=== PATIENT | female | born 1945 | race Caucasian/White ===

== ENCOUNTER 2022-07-01 15:54 | Inpatient (IN) | payer MEDICARE ==
[2022-07-01] VITALS (8 sets, daily range): BP systolic 76–116; BP diastolic 00–82
[~2022-07-01] VITALS: Ht 152.4 cm; Wt 88.1 kg
[2022-07-01 16:35] LABS: BASO # 0.1 10*3/uL (0.0-0.1); BASO % 0.6 % (0.0-1.0); EOS # 0.1 10*3/uL (0.0-0.4); EOS % 0.6 % (1.0-4.0); HEMATOCRIT 45.9 % (37.0-47.0); LYMPH # 1.6 10*3/uL (1.3-4.4); LYMPH % 18.7 % (27.0-41.0); MEAN CELL VOLUME 89.1 fl (81.0-99.0); MEAN CORPUSCULAR HGB 28.7 pg (27.0-31.0); MEAN CORPUSCULAR HGB CONC 32.2 g/dl (33.0-37.0); MEAN PLATELET VOLUME 10.4 fl (9.6-12.3); MONO # 0.9 10*3/uL (0.1-1.0); MONO % 10.4 % (3.0-9.0); NEUT # 5.8 10*3/uL (2.3-7.9); NEUT % 69.2 % (47.0-73.0); PLATELET COUNT AUTOMATED 247 10*3/uL (130-400); RED BLOOD COUNT 5.15 10*6/uL (4.10-5.10); RED CELL DISTRI WIDTH 15.7 % (0-14.5); WHITE BLOOD COUNT 8.4 10*3/uL (4.8-10.8)
[2022-07-01 16:45] LABS: ACT PARTIAL THROMBO TIME 35.8 SECONDS (20.0-32.1); INTERNATIONAL NORM RATIO 1.5 (2.0-3.5)
[2022-07-01 16:55] LABS: CREATININE 3.78 mg/dL (0.55-1.02); POTASSIUM 4.2 mmol/L (3.5-5.1); TOTAL PROTEIN 7.5 gm/dL (6.4-8.2)
[2022-07-01 18:11] LABS: BILIRUBIN Negative (Negative); BLOOD Trace-Intact (Negative); CLARITY Clear (Clear); COLOR Yellow (Yellow); GLUCOSE Trace (Negative); KETONE Negative (Negative); LEUKO ESTERASE Negative (Negative); NITRITE Negative (Negative); PH 5.5 (4.5-8.0); SPECIFIC GRAVITY 1.015 (1.001-1.030); UROBILINOGEN 0.2 E.U./dl (0.0-1.0)
[2022-07-01 18:22] LABS: RBC 16-20 rbc/hpf (0-2)
[2022-07-01 18:23] LABS: BACTERIA 1+; FINE GRANULAR CAST 0-2; MUCOUS 1+
[2022-07-01] MEDS ORDERED: FARXIGA5 M1 PO (20:36)
[2022-07-01] MEDS ORDERED: PROTONIX40 MG PO (20:36)
[2022-07-01] MEDS ORDERED: TRAD5TAB1 PO (20:37)
[2022-07-01] MEDS ORDERED: XARE15TA PO (20:38)
[2022-07-01] MEDS ORDERED: FOSAMAX70 M1 PO (20:38)
[2022-07-01] MEDS ORDERED: PROZAC40 M1 PO (20:39)
[2022-07-01] MEDS ORDERED: ASPIRIN CHEWABL81 MG PO (20:40)
[2022-07-01] MEDS ORDERED: MAGNESIUM500 MG PO (20:40)
[2022-07-01] MEDS ORDERED: BUMETANIDE2 MG PO (20:41)
[2022-07-01] MEDS ORDERED: ULTRAM50 MG PO (20:43)
[2022-07-01] MEDS ORDERED: POTASSIUM CHLO10 ME5 PO (23:57)
[2022-07-01] MEDS ORDERED: KLOR-CON M2020 ME1 PO (23:59)
[2022-07-02] VITALS: BP 130/60
[2022-07-02] MEDS ORDERED: VITAMIN D375 MCG PO (00:01)
[2022-07-02] MEDS ORDERED: LANTUS SOL100 UNIT/1 SQ (00:01)
[2022-07-02] MEDS ORDERED: Zaroxolyn,Diul2.5 MG PO (00:03)
[2022-07-02 04:00] VITALS: BP 112/65
[2022-07-02 05:23] LABS: CREATININE 2.78 mg/dL (0.55-1.02); TOTAL PROTEIN 6.8 gm/dL (6.4-8.2)
[2022-07-02 05:24] LABS: FREE T4 1.78 ng/dl (0.76-1.46)
[2022-07-02 05:29] LABS: THYROID STIM HORMONE (HS) 1.57 uIU/ml (0.358-4.75)
[2022-07-02 05:31] LABS: POTASSIUM 3.1 mmol/L (3.5-5.1)
[2022-07-02 06:10] LABS: BASO # 0.1 10*3/uL (0.0-0.1); BASO % 0.6 % (0.0-1.0); EOS # 0.1 10*3/uL (0.0-0.4); EOS % 1.7 % (1.0-4.0); HEMATOCRIT 43.5 % (37.0-47.0); LYMPH # 2.1 10*3/uL (1.3-4.4); LYMPH % 25.7 % (27.0-41.0); MEAN CELL VOLUME 88.8 fl (81.0-99.0); MEAN CORPUSCULAR HGB 28.2 pg (27.0-31.0); MEAN CORPUSCULAR HGB CONC 31.7 g/dl (33.0-37.0); MEAN PLATELET VOLUME 10.4 fl (9.6-12.3); MONO % 12.3 % (3.0-9.0); NEUT # 4.9 10*3/uL (2.3-7.9); NEUT % 59.3 % (47.0-73.0); PLATELET COUNT AUTOMATED 243 10*3/uL (130-400); RED CELL DISTRI WIDTH 16.1 % (0-14.5); WHITE BLOOD COUNT 8.2 10*3/uL (4.8-10.8)
[2022-07-02 06:17] LABS: ACT PARTIAL THROMBO TIME 29.8 SECONDS (20.0-32.1); INTERNATIONAL NORM RATIO 1.3 (2.0-3.5)
[2022-07-02 08:00] VITALS: BP 114/64
[2022-07-02 12:00] VITALS: BP 105/66
[2022-07-02 16:00] VITALS: BP 104/51
[2022-07-02 20:00] VITALS: BP 118/54
[2022-07-03] VITALS: BP 109/53
[2022-07-03 04:00] VITALS: BP 122/76
[2022-07-03 04:37] LABS: BASO % 0.3 % (0.0-1.0); EOS # 0.2 10*3/uL (0.0-0.4); EOS % 3.1 % (1.0-4.0); HEMATOCRIT 39.5 % (37.0-47.0); LYMPH # 1.5 10*3/uL (1.3-4.4); LYMPH % 24.1 % (27.0-41.0); MEAN CELL VOLUME 90.2 fl (81.0-99.0); MEAN CORPUSCULAR HGB 28.8 pg (27.0-31.0); MEAN CORPUSCULAR HGB CONC 31.9 g/dl (33.0-37.0); MEAN PLATELET VOLUME 10.3 fl (9.6-12.3); MONO # 0.8 10*3/uL (0.1-1.0); MONO % 13.3 % (3.0-9.0); NEUT # 3.6 10*3/uL (2.3-7.9); NEUT % 58.9 % (47.0-73.0); PLATELET COUNT AUTOMATED 190 10*3/uL (130-400); RED BLOOD COUNT 4.38 10*6/uL (4.10-5.10); WHITE BLOOD COUNT 6.1 10*3/uL (4.8-10.8)
[2022-07-03 04:50] LABS: ACT PARTIAL THROMBO TIME 24.1 SECONDS (20.0-32.1); INTERNATIONAL NORM RATIO 1.1 (2.0-3.5)
[2022-07-03 04:58] LABS: CREATININE 2.03 mg/dL (0.55-1.02); POTASSIUM 3.6 mmol/L (3.5-5.1); TOTAL PROTEIN 6.5 gm/dL (6.4-8.2)
[2022-07-03 08:00] VITALS: BP 148/73
[2022-07-03 12:00] VITALS: BP 110/54
[2022-07-03 16:00] VITALS: BP 136/69
[2022-07-03 20:00] VITALS: BP 123/76
[2022-07-04] VITALS: BP 136/65
[2022-07-04 06:42] LABS: BASO % 0.6 % (0.0-1.0); EOS # 0.2 10*3/uL (0.0-0.4); EOS % 3.4 % (1.0-4.0); HEMATOCRIT 41.3 % (37.0-47.0); LYMPH # 1.2 10*3/uL (1.3-4.4); LYMPH % 18.6 % (27.0-41.0); MEAN CELL VOLUME 89.6 fl (81.0-99.0); MEAN CORPUSCULAR HGB 28.6 pg (27.0-31.0); MEAN PLATELET VOLUME 10.5 fl (9.6-12.3); MONO # 0.8 10*3/uL (0.1-1.0); MONO % 11.4 % (3.0-9.0); NEUT # 4.3 10*3/uL (2.3-7.9); NEUT % 65.5 % (47.0-73.0); PLATELET COUNT AUTOMATED 186 10*3/uL (130-400); RED BLOOD COUNT 4.61 10*6/uL (4.10-5.10); RED CELL DISTRI WIDTH 15.4 % (0-14.5); WHITE BLOOD COUNT 6.6 10*3/uL (4.8-10.8)
[2022-07-04 07:01] LABS: POTASSIUM 3.2 mmol/L (3.5-5.1)
[2022-07-04 07:07] LABS: CREATININE 1.51 mg/dL (0.55-1.02); TOTAL PROTEIN 6.9 gm/dL (6.4-8.2)
[2022-07-04 08:00] VITALS: BP 136/75
[2022-07-04 12:00] VITALS: BP 117/80
[2022-07-04] MEDS ORDERED: TOPROL XL25 MG PO (12:21)
== END 2022-07-04 15:31 | disposition home health service (06) | DRG 640 ==
LOC: ED → 5E 19:03 → ICCU 19:03 → EDHOLD 19:03 → ICCU 20:32 → 5E 07-03 14:26
PROVIDERS: Emergency Medicine; Family Medicine; Student in an Organized Health Care Education/Training Program; ADMIT Emergency Medicine; ATTEND Emergency Medicine
PROC: 4B02XSZ Measurement of Cardiac Pacemaker, External Approach (ICD-10-PCS; principal; 2022-07-02)
DX: E86.0 Dehydration (principal); I50.31 Acute diastolic (congestive) heart failure; N17.0 Acute kidney failure with tubular necrosis; I13.0 Hypertensive heart and chronic kidney disease with heart failure and stage 1 through stage 4 chronic kidney disease, or unspecified chronic kidney disease; E87.0 Hyperosmolality and hypernatremia; E87.1 Hypo-osmolality and hyponatremia; E87.20 Acidosis, unspecified; E11.22 Type 2 diabetes mellitus with diabetic chronic kidney disease; N18.9 Chronic kidney disease, unspecified; I95.9 Hypotension, unspecified; M19.90 Unspecified osteoarthritis, unspecified site; E78.5 Hyperlipidemia, unspecified; E11.65 Type 2 diabetes mellitus with hyperglycemia; E83.52 Hypercalcemia; E83.41 Hypermagnesemia; E80.6 Other disorders of bilirubin metabolism; R31.9 Hematuria, unspecified; L89.892 Pressure ulcer of other site, stage 2; I25.10 Atherosclerotic heart disease of native coronary artery without angina pectoris; I48.0 Paroxysmal atrial fibrillation; Z88.0 Allergy status to penicillin; Z88.2 Allergy status to sulfonamides; Z95.0 Presence of cardiac pacemaker; Z82.49 Family history of ischemic heart disease and other diseases of the circulatory system; Z87.891 Personal history of nicotine dependence

== ENCOUNTER 2022-08-12 07:40 | Emergency (ER) | payer MEDICARE ==
[~2022-08-12 07:40] MED LIST: ASPIRIN CHEWABL81 MG PO; BUMETANIDE2 MG PO; FARXIGA5 M1 PO; FOSAMAX70 M1 PO; KLOR-CON M2020 ME1 PO; LANTUS SOL100 UNIT/1 SQ; MAGNESIUM500 MG PO; POTASSIUM CHLO10 ME5 PO; PROTONIX40 MG PO; PROZAC40 M1 PO; TOPROL XL25 MG PO; TRAD5TAB1 PO; ULTRAM50 MG PO; VITAMIN D375 MCG PO; XARE15TA PO; Zaroxolyn,Diul2.5 MG PO
[2022-08-12] MEDS ORDERED: PREDNISONE20 M1 PO (10:22)
[2022-08-12] MEDS ORDERED: NEURONTIN300 MG PO (10:22)
== END 2022-08-12 10:33 | disposition home or self-care (01) ==
LOC: ED 07:40
DX: R10.2 Pelvic and perineal pain (principal); Z88.0 Allergy status to penicillin; Z88.2 Allergy status to sulfonamides; Z79.899 Other long term (current) drug therapy; Z90.710 Acquired absence of both cervix and uterus; Z90.49 Acquired absence of other specified parts of digestive tract; Z87.891 Personal history of nicotine dependence

== ENCOUNTER 2024-02-29 11:29 | Emergency (ER) | payer OTHER ==
[~2024-02-29] VITALS: Ht 154.9 cm; Wt 78.0 kg
[~2024-02-29 11:29] MED LIST changes: +NEURONTIN300 MG PO; +PREDNISONE20 M1 PO
[2024-02-29] MEDS ORDERED: ACETAMINOPHEN 325 MG TAB PO ONE (11:50)
== END 2024-02-29 13:45 | disposition home or self-care (01) ==
LOC: ED 11:29
DX: S60.212A Contusion of left wrist, initial encounter (principal); I48.91 Unspecified atrial fibrillation; I11.0 Hypertensive heart disease with heart failure; I50.9 Heart failure, unspecified; E78.5 Hyperlipidemia, unspecified; E11.9 Type 2 diabetes mellitus without complications; Z88.0 Allergy status to penicillin; Z88.2 Allergy status to sulfonamides; Z90.49 Acquired absence of other specified parts of digestive tract; Z90.710 Acquired absence of both cervix and uterus; Z87.891 Personal history of nicotine dependence; W01.0XXA Fall on same level from slipping, tripping and stumbling without subsequent striking against object, initial encounter; Y93.89 Activity, other specified; Y92.009 Unspecified place in unspecified non-institutional (private) residence as the place of occurrence of the external cause; Y99.8 Other external cause status

== ENCOUNTER 2024-03-19 08:19 | Emergency (ER) | payer OTHER ==
[~2024-03-19] VITALS: Ht 154.9 cm; Wt 78.9 kg
[2024-03-19] MEDS ORDERED: ACETAMINOPHEN 325 MG TAB PO ONE (08:45)
[2024-03-19] MEDS ORDERED: METOPROLOL SUCC25 M2 PO (09:12)
[2024-03-19] MEDS ORDERED: FLUOXETINE HYDR20 M1 PO (09:13)
== END 2024-03-19 10:07 | disposition home or self-care (01) ==
LOC: ED 08:19
DX: S00.83XA Contusion of other part of head, initial encounter (principal); S00.81XA Abrasion of other part of head, initial encounter; M25.562 Pain in left knee; M25.552 Pain in left hip; S09.8XXA Other specified injuries of head, initial encounter; I10 Essential (primary) hypertension; E11.9 Type 2 diabetes mellitus without complications; Z88.0 Allergy status to penicillin; Z88.2 Allergy status to sulfonamides; Z90.710 Acquired absence of both cervix and uterus; Z90.49 Acquired absence of other specified parts of digestive tract; W19.XXXA Unspecified fall, initial encounter; Y93.89 Activity, other specified; Y92.89 Other specified places as the place of occurrence of the external cause; Y99.8 Other external cause status

== ENCOUNTER 2025-03-20 11:43 | Inpatient (IN) | payer OTHER ==
[~2025-03-20] VITALS: Ht 152.4 cm; Wt 79.9 kg
[~2025-03-20 11:43] MED LIST changes: +FLUOXETINE HYDR20 M1 PO; +METOPROLOL SUCC25 M2 PO
[2025-03-20 11:47] VITALS: BP 163/77
[2025-03-20 12:06] LABS: BASO # 0.1 10*3/uL (0.0-0.1); BASO % 0.6 % (0.0-1.0); EOS # 0.1 10*3/uL (0.0-0.4); EOS % 0.6 % (1.0-4.0); HEMATOCRIT 41.2 % (37.0-47.0); MEAN CELL VOLUME 92.4 fl (81.0-99.0); MEAN CORPUSCULAR HGB 30.5 pg (27.0-31.0); MEAN PLATELET VOLUME 10.2 fl (9.6-12.3); MONO # 0.8 10*3/uL (0.1-1.0); MONO % 10.3 % (3.0-9.0); NEUT # 5.6 10*3/uL (2.3-7.9); NEUT % 71.5 % (47.0-73.0); PLATELET COUNT AUTOMATED 182 10*3/uL (130-400); RED BLOOD COUNT 4.46 10*6/uL (4.10-5.10); RED CELL DISTRI WIDTH 12.6 % (0-14.5); WHITE BLOOD COUNT 7.9 10*3/uL (4.8-10.8)
[2025-03-20] MEDS ORDERED: ALENDRONATE SOD70 M1 PO (12:26)
[2025-03-20 12:35] LABS: POTASSIUM 4.3 mmol/L (3.4-5.1)
[2025-03-20] MEDS ORDERED: INSULIN REGULAR, HUMAN 1 UNIT/0.01 ML IV ONE (12:50)
[2025-03-20] MEDS ORDERED: SODIUM CHLORIDE 0.9% 1,000 ML IV ONE (12:50)
[2025-03-20 13:31] LABS: BILIRUBIN Negative (Negative); BLOOD Trace-Lysed (Negative); CLARITY Clear (Clear); COLOR Yellow (Yellow); GLUCOSE 3+ (Negative); KETONE 1+ (Negative); LEUKO ESTERASE Negative (Negative); NITRITE Negative (Negative); UROBILINOGEN 0.2 E.U./dl (0.0-1.0)
[2025-03-20 13:44] LABS: EPITHELIAL CELLS 0-2
[2025-03-20 13:45] LABS: BACTERIA TRACE; RBC 0-2 rbc/hpf (0-2); WBC 0-2 wbc/hpf (0-5)
[2025-03-20] MEDS ORDERED: ACETAMINOPHEN 325 MG TAB PO PRN (14:50)
[2025-03-20] MEDS ORDERED: Acetaminophen/Hydrocodone 5 MG/325 MG TABLET PO PRN (14:50)
[2025-03-20] MEDS ORDERED: ACETAMINOPHEN 650 MG SUPP R PRN (14:50)
[2025-03-20] MEDS ORDERED: BISACODYL 10 MG SUPP R PRN (14:50)
[2025-03-20] MEDS ORDERED: BISACODYL 5 MG TAB PO PRN (14:50)
[2025-03-20] MEDS ORDERED: Ondansetron Hydrochloride 4 MG/2 ML VIAL IV PRN (14:50)
[2025-03-20] MEDS ORDERED: Magnesium Hydroxide 30 ML UDC PO PRN (14:50)
[2025-03-20] MEDS ORDERED: TEMAZEPAM 15 MG CAP PO PRN (14:50)
[2025-03-20] MEDS ORDERED: DEXTROSE 50% 25 GM/50 ML VIAL IV PRN (15:00)
[2025-03-20 16:05] VITALS: BP 147/62
[2025-03-20] MEDS ORDERED: INSULIN LISPRO 1 UNIT/0.01 ML SQ SCH (16:30)
[2025-03-20 17:54] LABS: URIC ACID 5.6 mg/dL (3.1-7.8)
[2025-03-20 20:00] VITALS: BP 126/46
[2025-03-20] MEDS ORDERED: GABAPENTIN 300 MG CAP PO SCH (22:00)
[2025-03-21 06:20] LABS: BASO % 0.4 % (0.0-1.0); EOS # 0.1 10*3/uL (0.0-0.4); EOS % 0.8 % (1.0-4.0); HEMATOCRIT 40.9 % (37.0-47.0); MEAN CORPUSCULAR HGB 30.5 pg (27.0-31.0); MEAN CORPUSCULAR HGB CONC 32.8 g/dl (33.0-37.0); MEAN PLATELET VOLUME 10.5 fl (9.6-12.3); MONO # 0.9 10*3/uL (0.1-1.0); MONO % 10.2 % (3.0-9.0); NEUT # 6.9 10*3/uL (2.3-7.9); NEUT % 74.8 % (47.0-73.0); PLATELET COUNT AUTOMATED 177 10*3/uL (130-400); RED CELL DISTRI WIDTH 12.8 % (0-14.5); WHITE BLOOD COUNT 9.2 10*3/uL (4.8-10.8)
[2025-03-21 06:23] LABS: ACT PARTIAL THROMBO TIME 29.6 SECONDS (20.0-32.1)
[2025-03-21 07:07] LABS: POTASSIUM 4.7 mmol/L (3.4-5.1); TOTAL PROTEIN 6.5 gm/dL (6.0-8.0)
[2025-03-21 08:00] VITALS: BP 121/58
[2025-03-21] MEDS ORDERED: SODIUM CHLORIDE 0.9% 1,000 ML IV ONE (08:20)
[2025-03-21 08:34] LABS: VITAMIN D, 25-HYDROXY 29.4 ng/mL (30-100)
[2025-03-21] MEDS ORDERED: MAGNESIUM OXIDE 400 MG TAB PO SCH (10:00)
[2025-03-21] MEDS ORDERED: Vitamin D 1,000 IU TAB (25 MCG) PO SCH (10:00)
[2025-03-21] MEDS ORDERED: RIVAROXABAN 15 MG TAB PO SCH (10:00)
[2025-03-21] MEDS ORDERED: Insulin Glargine, Recombinan 1 UNIT/0.01 ML SC SCH (10:00)
[2025-03-21 12:00] VITALS: BP 124/71
[2025-03-21 16:00] VITALS: BP 140/51
== END 2025-03-21 18:10 | disposition home or self-care (01) | DRG 554 ==
LOC: ED 11:43 → 4E 14:12 → EDHOLD 14:12 → 4E 15:24
PROVIDERS: Nurse Practitioner Family; ADMIT Internal Medicine; ATTEND Internal Medicine
DX: M17.12 Unilateral primary osteoarthritis, left knee (principal); E87.1 Hypo-osmolality and hyponatremia; I50.32 Chronic diastolic (congestive) heart failure; N17.9 Acute kidney failure, unspecified; I13.0 Hypertensive heart and chronic kidney disease with heart failure and stage 1 through stage 4 chronic kidney disease, or unspecified chronic kidney disease; E10.65 Type 1 diabetes mellitus with hyperglycemia; N18.32 Chronic kidney disease, stage 3b; E78.5 Hyperlipidemia, unspecified; M81.0 Age-related osteoporosis without current pathological fracture; M25.462 Effusion, left knee; M25.562 Pain in left knee; I48.91 Unspecified atrial fibrillation; M71.22 Synovial cyst of popliteal space [Baker], left knee; M71.21 Synovial cyst of popliteal space [Baker], right knee; E10.22 Type 1 diabetes mellitus with diabetic chronic kidney disease; N18.9 Chronic kidney disease, unspecified; Z88.0 Allergy status to penicillin; Z88.2 Allergy status to sulfonamides; Z90.710 Acquired absence of both cervix and uterus; Z90.49 Acquired absence of other specified parts of digestive tract; Z82.49 Family history of ischemic heart disease and other diseases of the circulatory system; Z79.01 Long term (current) use of anticoagulants; Z95.0 Presence of cardiac pacemaker

== ENCOUNTER 2025-03-31 13:56 | Emergency (ER) | payer OTHER ==
[~2025-03-31] VITALS: Ht 152.4 cm; Wt 77.1 kg
[~2025-03-31 13:56] MED LIST changes: +ALENDRONATE SOD70 M1 PO
[2025-03-31] MEDS ORDERED: Metoclopramide Hydrochloride 10 MG/2 ML VIAL IV ONE (14:00)
[2025-03-31] MEDS ORDERED: FAMOTIDINE 50 ML IV ONE (14:00)
[2025-03-31] MEDS ORDERED: diphenhydrAMINE hydrochloride 50 MG/ML VIAL IV ONE (14:00)
[2025-03-31] MEDS ORDERED: SODIUM CHLORIDE 0.9% 1,000 ML IV ONE (14:00)
[2025-03-31 14:14] LABS: BASO # 0.0 10*3/uL (0.0-0.1); BASO % 0.2 % (0.0-1.0); EOS # 0.0 10*3/uL (0.0-0.4); EOS % 0.1 % (1.0-4.0); MEAN CELL VOLUME 93.7 fl (81.0-99.0); MEAN CORPUSCULAR HGB 30.8 pg (27.0-31.0); MEAN PLATELET VOLUME 9.8 fl (9.6-12.3); MONO # 1.0 10*3/uL (0.1-1.0); MONO % 8.1 % (3.0-9.0); NEUT # 10.5 10*3/uL (2.3-7.9); NEUT % 84.9 % (47.0-73.0); NUCLEATED RED BLOOD CELL 0.0 % (0.0-0.0); NUCLEATED RED BLOOD CELL 0.0 10*3/uL (0.0-0.0); PLATELET COUNT AUTOMATED 156 10*3/uL (130-400); RED CELL DISTRI WIDTH 12.9 % (0-14.5)
[2025-03-31 14:32] LABS: BUN 20.0 mg/dl (9-23)
[2025-03-31] MEDS ORDERED: Ondansetron4 MG PO (16:53)
[2025-03-31] MEDS ORDERED: ANTI-DIARRHEAL2 MG PO (16:53)
== END 2025-03-31 17:18 | disposition home or self-care (01) ==
LOC: ED 13:56
PROVIDERS: Emergency Medicine
DX: R11.2 Nausea with vomiting, unspecified (principal); R53.1 Weakness; R19.7 Diarrhea, unspecified; I12.9 Hypertensive chronic kidney disease with stage 1 through stage 4 chronic kidney disease, or unspecified chronic kidney disease; E11.22 Type 2 diabetes mellitus with diabetic chronic kidney disease; N18.9 Chronic kidney disease, unspecified; I25.10 Atherosclerotic heart disease of native coronary artery without angina pectoris; K21.9 Gastro-esophageal reflux disease without esophagitis; Z79.4 Long term (current) use of insulin; Z79.899 Other long term (current) drug therapy; Z88.0 Allergy status to penicillin; Z88.2 Allergy status to sulfonamides